=== PATIENT | female | born 1945 | race Caucasian/White ===

== ENCOUNTER → 2021-01-23 10:56 | Outpatient (CLI) | payer MEDICARE, SELFPAY ==
--- NOTE | 2021-01-23 11:01 | DI.MRI.S_ITS ---
PROCEDURE: MR LUMBAR SPINE WO CON INDICATIONS: Dementia, neck and back pain, TECHNIQUE: Noncontrast sagittal T1 spin echo and T2 fast echo, sagittal STIR, axial T1 and T2 fast spin echo through the lumbar spine. In cases with scoliosis, additional coronal T2 fast spin echo may be performed. COMPARISON: None. FINDINGS: There is been L4-5 and L5-S1 discectomy infusion with decompressive laminectomies at L4 and L5. Associated degenerative endplate changes noted. No paraspinal mass. Conus medullaris is appropriate in position. Incidental cholelithiasis noted. T12-L1: The disc height is normal. No evidence of disc bulge or protrusion. No central or foraminal stenosis present. L1-2: Severe disc space narrowing and large circumferential disc bulge combined with ligamentum flavum laxity to result in severe central stenosis, narrowing the AP diameter of the thecal sac to 5 mm. Moderate right and severe left foraminal stenosis present. L2-3: Severe disc space narrowing and hypertrophic facet joints are present. There is a 8 mm retrolisthesis of L2 over L3. These findings result in severe central stenosis narrowing the ML diameter of the thecal sac to 5 mm. There is severe bilateral foraminal stenosis L3-4: Interbody fusion and instrumentation. The central canal is widely decompressed. Mild left and no right foraminal stenosis present. L4-5: Interbody fusion and posterior instrumentation noted. Central canal is widely decompressed. Mild left and moderate right foraminal stenosis. L5-S1: There is disc space narrowing and degenerative endplate changes noted. No central stenosis. Hypertrophic facet joints results in severe left and moderate right foraminal stenosis. IMPRESSION: 1. Degenerative disc disease and grade 2 retrolisthesis at L2-3 results in severe central stenosis and severe bilateral foraminal stenosis 2. Additional severe central stenosis at L1-2. 3. L3-4 and L4-5 well-healed interbody fusion, decompressive laminectomy and posterior instrumentation Dictated by: Dwayne Hernandez M.D. on 01/23/2021 at 14:09 Approved by: Dwayne Hernandez M.D. on 01/23/2021 at 14:45
--- NOTE | 2021-01-23 11:01 | DI.MRI.S_ITS ---
PROCEDURE: MR CERVICAL SPINE WO CON INDICATIONS: Dementia, neck and back pain, TECHNIQUE: Noncontrast sagittal T1 spin echo and T2 fast spin echo, sagittal STIR, foraminal oblique sagittal T2 fast spin echo, and axial gradient echo or T2 fast spin echo through the cervical spine. COMPARISON: None. FINDINGS: Image quality: Excellent. Alignment and Curvature: Straightening of the usual cervical lordosis due to degenerative changes. Retrolisthesis of C4 on C5 measuring approximately 3 mm. Vertebral body heights maintained. Bone Marrow: Degenerative endplate signal changes including marrow edema are present at C3-C4, C4-C5, and C5-C6. No suspicious focal marrow signal abnormality. Spinal Cord: There is a T2 hyperintense lesion in the cord centrally and posteriorly at the C5 level (series 4, image 6 and series 8, image 19). This measures approximately 6 mm in craniocaudal dimension and 6 x 4 mm in maximum axial dimension. Otherwise normal cord signal. No syrinx. Regional Soft Tissues: Prevertebral and paraspinous soft tissues are not within normal limits. C2-C3: No spinal canal or neural foraminal stenosis. C3-C4: Posterior disc-osteophyte complex flattens the ventral cord and. Buckling of the ligamentum flavum further contributes to overall mild spinal canal stenosis. Facet and uncovertebral hypertrophy contribute to mild bilateral neural foraminal narrowing, right greater than left. C4-C5: Retrolisthesis of C4 on C5 combines with posterior disc osteophyte complex to flatten the ventral cord. Buckling of the ligamentum flavum further contribute to overall moderate spinal canal stenosis. Cord signal abnormality at this level presumably reflects an element of myelomalacia due to longstanding cord compression, although remote trauma or other process is not entirely excluded. Facet and uncovertebral hypertrophy contribute to severe left and moderate right neural foraminal stenosis. C5-C6: Posterior disc osteophyte complex without mass effect upon the cord. Facet and uncovertebral hypertrophy contribute to moderate right and mild left neural foraminal stenosis. C6-C7: Posterior disc osteophyte complex without mass effect upon the cord. Facet and uncovertebral hypertrophy contribute to moderate left greater than right neural foraminal stenosis. C7-T1: No spinal canal or neural foraminal stenosis. 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 Remote trauma or other process could cause a similar appearance, however, and other less likely causes will need clinical exclusion. Correlation with any prior cervical spine MRI studies would be helpful in this regard. Multilevel multifactorial degenerative changes producing varying degrees of neural foraminal stenosis up to severe on the left at C4-C5. Correlate for any corresponding radicular symptoms. Dictated by: Rigoberto Recio M.D. on 01/23/2021 at 11:56 Approved by: Rigoberto Recio M.D. on 01/23/2021 at 12:02
--- NOTE | 2021-01-23 11:02 | DI.CT.S_ITS ---
PROCEDURE: CT HEAD/BRAIN WO CON INDICATIONS: Dementia TECHNIQUE: Noncontrast 4.5 mm thick angled axial sections acquired from the foramen magnum to the vertex, with coronal and sagittal reformats. For radiation dose reduction, the following was used: automated exposure control, adjustment of mA and/or kV according to patient size. COMPARISON: None. FINDINGS: Cerebrum, Cerebellum and Brainstem: Moderate cerebral and cerebellar volume loss as well as severe multifocal and confluent hypoattenuation in the deep and subcortical white matter present. No acute hemorrhage or mass effect. Arthur-white distinction is preserved throughout the exam. Basal cisterns and foramen magnum are clear. Ventricles: Appropriate in size and position given the amount of cerebral atrophy. No evidence of hydrocephalus. Skull Base: The bony sella, pituitary gland and infundibulum are unremarkable. Clivus and craniovertebral relationships are appropriate. Visualized portions of external auditory canals and tympanic cavities are within normal limits. Calvarium and Scalp: No scalp soft tissue swelling. The underlying calvarium is intact without skull fracture or lytic lesion. Paranasal Sinuses: Unremarkable as visualized. No mucosal thickening or retention cyst noted. Mastoids: Unremarkable as visualized. No mastoid effusion present. Other: Atherosclerotic calcification in the cavernous portions of the distal internal carotid arteries are noted. IMPRESSION: Moderate atrophy with multifocal and confluent advanced white matter chronic ischemic change. No intracranial hemorrhage or mass effect. Dictated by: Dwayne Hernandez M.D. on 01/23/2021 at 14:45 Approved by: Dwayne Hernandez M.D. on 01/23/2021 at 15:13
== END ==
PROVIDERS: PCP Family Medicine; Referring Provider Acupuncturist; Visit Provider Acupuncturist
DX: G31.9 Degenerative disease of nervous system, unspecified (principal); F03.90 Unspecified dementia, unspecified severity, without behavioral disturbance, psychotic disturbance, mood disturbance, and anxiety; G95.9 Disease of spinal cord, unspecified; M54.2 Cervicalgia; M48.02 Spinal stenosis, cervical region; M47.812 Spondylosis without myelopathy or radiculopathy, cervical region; M54.9 Dorsalgia, unspecified; M51.36 Other intervertebral disc degeneration, lumbar region; M48.061 Spinal stenosis, lumbar region without neurogenic claudication; Z98.1 Arthrodesis status
CPT/HCPCS: 70450; 72141; 72148

== ENCOUNTER 2022-01-29 02:52 | Observation (INO) | payer MEDICARE, SELFPAY ==
[2022-01-29] VITALS (12 sets, daily range): BP systolic 116–162; BP diastolic 50–72; PULSE 53–84; RESP 11–19; TEMP 36.6–37.1; O2SAT 94–98; BMI 26.5
--- NOTE | 2022-01-29 03:01 | DI.RAD.S_ITS ---
PROCEDURE: XR CHEST 1V INDICATIONS: chest pain TECHNIQUE: One view of the chest was acquired. COMPARISON: None. FINDINGS: Surgical changes and devices: None. Lungs and pleura: Lungs are clear. No pleural effusions or pneumothorax. Mediastinum: Mediastinal contours appear normal. Heart size is normal. Bones and chest wall: No suspicious bony lesions. Overlying soft tissues appear unremarkable. IMPRESSION: No acute cardiopulmonary disease process. Dictated by: Marley Power MD, PhD on 01/29/2022 at 7:34 Approved by: Marley Power MD, PhD on 01/29/2022 at 7:35
--- NOTE | 2022-01-29 03:01 | DI.US.S_ITS ---
PROCEDURE: US ABDOMEN LIMITED INDICATIONS: RUQ PAIN TECHNIQUE: Real-time focused scanning was performed of the abdomen, with image documentation. COMPARISON: None. FINDINGS: Liver is normal in size and homogeneous in echotexture. Multiple small gallstones. Gallbladder wall measures 0.5 millimeters. No pericholecystic fluid. No sonographic Traore sign. Biliary tree is nondilated. Common bile duct measures 5.3 millimeters. Visualized pancreas is sonographically normal. IMPRESSION: Cholelithiasis without sonographic evidence of cholecystitis. If there is continued clinical concern for cholecystitis, a nuclear medicine HIDA scan should be considered for further evaluation. Dictated by: Marley Power MD, PhD on 01/29/2022 at 7:33 Approved by: Marley Pwoer MD, PhD on 01/29/2022 at 7:34
--- NOTE | 2022-01-29 03:05 | ED.ABDPAIN ---
HPI - Abdominal Pain General Chief Complaint: Abdominal Pain Stated Complaint: RUQ Abd apin x2 days Time Seen by Provider: 01/29/22 03:01 History of Present Illness HPI narrative: Patient is a 76-year-old female history of peptic ulcer, memory issues, presenting today with right upper quadrant pain. Son is with her who is the primary historian. Sounds like she was okay earlier today but pain woke her from her sleep. It is epigastric area sometimes goes into her chest. She feels nauseous, but has actually not had any vomiting. sHe is still complaining of pain. No bowel movement for 3 days. She denies any prior surgeries. Related Data Home Medications Medication Instructions Recorded Confirmed Centrum PO DAILY 01/29/22 PreserVision AREDS PO BID 01/29/22 Vitamin D3 10 mcg PO DAILY 01/29/22 01/29/22 amlodipine 2.5 mg PO DAILY 01/29/22 01/29/22 ezetimibe 10 mg PO QID 01/29/22 01/29/22 isosorbide mononitrate 30 mg PO DAILY 01/29/22 01/29/22 lisinopril 10 mg PO DAILY 01/29/22 01/29/22 sertraline 100 mg PO DAILY 01/29/22 01/29/22 simvastatin 40 mg PO DAILY 01/29/22 01/29/22 Allergies Allergy/AdvReac Type Severity Reaction Status Date / Time No Known Drug Allergies Allergy Verified 01/29/22 04:41 Review of Systems Review of Systems ROS Unobtainable: All systems reviewed & are unremarkable except as noted in HPI and below Patient History Social History Smoking Status: Never smoker Exam Initial Vital Signs Initial Vital Signs: Vital Signs Pulse Rate 54 L 01/29/22 02:57 Respiratory Rate 19 01/29/22 02:57 Pulse Oximetry 94 01/29/22 02:57 GENERAL: Alert pleasant 76-year-old female HEENT: Head atraumatic,EOMI, pupils reactive, face symmetric, [moist] mucous membranes CARDIOVASCULAR: Regular rate and rhythm without murmurs, rubs or gallops. RESPIRATORY: Breath sounds equal bilaterally, no wheezes rales or rhonchi. ABDOMEN: Soft, mild epigastric tenderness tender right quadrant, mild guarding no distention EXTREMITIES: Normal range of motion, no clubbing or edema. Neurovascularly intact NEUROLOGICAL: Alert and oriented x2.N SKIN: Warm, dry, no laceration, no petechiae, no rashes or lesions. Course Orders Ordered: ED Orders 01/29/22 02:55 EKG-12 Lead Stat 01/29/22 03:00 Complete Blood Count AUTO DIFF Stat Comprehensive Metabolic Panel Stat Lactate (Lactic Acid) Stat Lipase Stat Troponin & CK Cardiac Panel Stat 01/29/22 03:01 US abdomen limited Stat XR chest 1V Stat 01/29/22 04:09 CT abdomen pelvis w con Stat 01/29/22 05:12 COVID19 -Nasal RAPID/Pre-Proc Stat Sodium Chloride (Normal Saline 0.9%) 1,000 mls @ 150 mls/hr IV CONT SU Last Admin: 01/29/22 03:32 Dose: 150 mls/hr Documented By: STEVEN Discontinued Medications Ketorolac Tromethamine (Ketorolac 30 Mg/Ml Vial) 15 mg IV NOW ONE Stop: 01/29/22 03:02 Last Admin: 01/29/22 03:31 Dose: 15 mg Documented By: STEVEN Morphine Sulfate (Morphine 2 Mg/Ml Inj) 2 mg IV NOW ONE Stop: 01/29/22 04:38 Last Admin: 01/29/22 04:42 Dose: 2 mg Documented By: STEVEN Ondansetron HCl (Ondansetron 4 Mg/2 Ml Inj) 4 mg IV NOW ONE Stop: 01/29/22 03:02 Last Admin: 01/29/22 03:31 Dose: 4 mg Documented By: STEVEN Vital Signs Vital signs: Vital Signs - 8 hr 01/29/22 03:08 01/29/22 02:57 01/29/22 03:00 Temperature 97.9 F Pulse Rate 55 L 54 L Respiratory Rate 18 19 Blood Pressure 153/65 H 116/58 L Pulse Oximetry 95 94 Oxygen Delivery Method Room Air 01/29/22 03:00 01/29/22 03:30 01/29/22 03:30 Temperature Pulse Rate 53 L 55 L Respiratory Rate 11 L 13 Blood Pressure 119/60 Pulse Oximetry 96 98 Oxygen Delivery Method MDM - Abdominal Pain Lab Data Result diagrams: 01/29/22 03:00 01/29/22 03:00 Labs: Lab Results 01/29/22 01/29/22 01/29/22 Range/Units 03:00 03:00 03:00 WBC 7.7 (4.5-11.0) X10^3/uL RBC 3.74 L (4.0-5.2) X10^6/uL Hgb 11.9 L (12.0-16.0) g/dL Hct 35.9 L (36-46) % MCV 95.8 (80-100) fL MCH 31.8 (26-34) PG MCHC 33.2 (30-36) % RDW 13.7 (11.6-14.8) % Plt Count 270 (150-400) X10^3/uL Neut % (Auto) 62.1 (50-75) % Lymph % (Auto) 24.1 L (25-40) % [place] % (Auto) 7.6 (3-14) % Eos % (Auto) 5.2 H (2-4) % Baso % (Auto) 1.0 (0-2) % Neut # (Auto) 4800 (6233-6260) /uL Lymph # (Auto) 1900 (0748-7187) /uL [place] # (Auto) 600 (0-900) /uL Eos # (Auto) 400 (0-450) /uL Baso # (Auto) 100 (0-100) /uL Sodium 140 (137-145) mmol/L Potassium 4.2 (3.4-5.1) mmol/L Chloride 102 (98-107) mmol/L Carbon Dioxide 29 (22-32) mmol/L BUN 19 H (7-17) mg/dL Creatinine 0.86 (0.52-1.04) mg/dL Estimated GFR > 60 (>60) mL/min BUN/Creatinine Ratio 22.1 H (6-22) Glucose 111 H (80-110) mg/dL Lactate 2.1 (0.7-2.1) mmol/L Calcium 9.7 (8.4-10.2) mg/dL Total Bilirubin 0.5 (0.2-1.3) mg/dL AST 36 (14-36) IU/L ALT 26 (<35) IU/L Alkaline Phosphatase 83 (38-126) U/L Total Creatine Kinase 176 H (30-135) U/L CK-MB (CK-2) 2.75 H (<2.37) ng/mL CK-MB (CK-2) Rel Index 1.6 (1.5-5.0) % Troponin I < 0.012 (0.01-0.034) ng/mL Total Protein 7.5 (6.3-8.2) g/dL Albumin 4.5 (3.5-5.0) g/dL Globulin 3.0 (1.7-4.1) g/dL Albumin/Globulin Ratio 1.5 (1.0-2.8) Lipase 108 (23-300) U/L SARS-CoV-2 (PCR) (Negative) 01/29/22 Range/Units 05:12 WBC (4.5-11.0) X10^3/uL RBC (4.0-5.2) X10^6/uL Hgb (12.0-16.0) g/dL Hct (36-46) % MCV (80-100) fL MCH (26-34) PG MCHC (30-36) % RDW (11.6-14.8) % Plt Count (150-400) X10^3/uL Neut % (Auto) (50-75) % Lymph % (Auto) (25-40) % [place] % (Auto) (3-14) % Eos % (Auto) (2-4) % Baso % (Auto) (0-2) % Neut # (Auto) (7366-5621) /uL Lymph # (Auto) (2210-0560) /uL [place] # (Auto) (0-900) /uL Eos # (Auto) (0-450) /uL Baso # (Auto) (0-100) /uL Sodium (137-145) mmol/L Potassium (3.4-5.1) mmol/L Chloride (98-107) mmol/L Carbon Dioxide (22-32) mmol/L BUN (7-17) mg/dL Creatinine (0.52-1.04) mg/dL Estimated GFR (>60) mL/min BUN/Creatinine Ratio (6-22) Glucose (80-110) mg/dL Lactate (0.7-2.1) mmol/L Calcium (8.4-10.2) mg/dL Total Bilirubin (0.2-1.3) mg/dL AST (14-36) IU/L ALT (<35) IU/L Alkaline Phosphatase (38-126) U/L Total Creatine Kinase (30-135) U/L CK-MB (CK-2) (<2.37) ng/mL CK-MB (CK-2) Rel Index (1.5-5.0) % Troponin I (0.01-0.034) ng/mL Total Protein (6.3-8.2) g/dL Albumin (3.5-5.0) g/dL Globulin (1.7-4.1) g/dL Albumin/Globulin Ratio (1.0-2.8) Lipase (23-300) U/L SARS-CoV-2 (PCR) Negative (Negative) Imaging Data US - abdomen: Radiologist's Impression: Cholelithiasis no sonographic findings of acute cholecystitis or obstructive uropathy Chest x-ray: Radiologist's Impression: No acute cardiopulmonary abnormality is identified CT scan - abdomen/pelvis: Radiologist's Impression: Findings compatible with small-bowel obstruction with probable transition point within the left mid abdomen. No pneumoperitoneum or pneumonitis. No evidence of colitis diverticulitis obstructive uropathy or acute appendicitis. ECG Data Interpretation: Normal sinus rhythm rate 55 CO interval 148 QRS [address] changes, T-wave inversion noted in lead 3 only no priors to compare MDM Narrative Medical decision making narrative: The patient is uncomfortable no significant abdominal distension. Blood work is overall reassuring. Ultrasound shows cholelithiasis but no elevation of bilirubin unlikely to be common bile duct stone, however CT confirms bowel obstruction. Patient has no history of surgery. She is not actively vomiting. 0505 Dr. Hernandez for reassessment and patient's symptoms test results. This time no need for NG tube. Admit to medicine. 0515 Tiffany Hernandez accepts patient. Patient's pain is better after morphine and Zofran. No sign of mesenteric ischemia, or sepsis. Discharge Plan Departure Patient Disposition: Admitted as Observation Clinical Impression: Small bowel obstruction Admit Date/Time: 01/29/22 05:14 Admit Provider: Fabby Hernandez
[2022-01-29 03:15] LABS: Add Manual Diff / Slide Review NO; Basophils Absolute Auto 100 /uL (0-100); Eosinophils Absolute Auto 400 /uL (0-450); Eosinophils Percent Auto 5.2 % (2-4); Hematocrit 35.9 % (36-46); Hemoglobin 11.9 g/dL (12.0-16.0); Lymphocytes Absolute Auto 1900 /uL (1100-4500); Lymphocytes Percent Auto 24.1 % (25-40); Mean Corpuscular HGB Conc 33.2 % (30-36); Mean Corpuscular Hemoglobin 31.8 PG (26-34); Mean Corpuscular Volume 95.8 fL (80-100); Monocytes Absolute Auto 600 /uL (0-900); Monocytes Percent Auto 7.6 % (3-14); Neutrophils Absolute Auto 4800 /uL (1500-7000); Neutrophils Percent Auto 62.1 % (50-75); Platelet Count 270 X10^3/uL (150-400); Red Blood Cell Count 3.74 X10^6/uL (4.0-5.2); Red Cell Distribution Width 13.7 % (11.6-14.8); White Blood Cell Count 7.7 X10^3/uL (4.5-11.0)
[2022-01-29 03:23] LABS: Alanine Aminotransferase 26 IU/L (<35); Albumin 4.5 g/dL (3.5-5.0); Albumin Globulin Ratio 1.5 (1.0-2.8); Alkaline Phosphatase 83 U/L (38-126); Aspartate Aminotransferase 36 IU/L (14-36); BUN Creatinine Ratio 22.1 (6-22); Bilirubin Total 0.5 mg/dL (0.2-1.3); Blood Urea Nitrogen 19 mg/dL (7-17); Calcium 9.7 mg/dL (8.4-10.2); Carbon Dioxide 29 mmol/L (22-32); Chloride 102 mmol/L (98-107); Creatine Kinase 176 U/L (30-135); Estimated Glomerular Filt Rate > 60 mL/min (>60); Glucose 111 mg/dL (80-110); HEMOLYSIS < 15 (0-50); Lipase 108 U/L (23-300); Potassium 4.2 mmol/L (3.4-5.1); Sodium 140 mmol/L (137-145); Total Protein 7.5 g/dL (6.3-8.2)
[2022-01-29] MEDS: KETOROLAC 30 MG/ML VIAL 15 MG IV (03:31)
[2022-01-29] MEDS: ONDANSETRON 4 MG/2 ML INJ IV ×2 (03:31→08:08)
[2022-01-29] MEDS: SODIUM CHLORIDE 0.9% 1,000 ML 150 ML IV (03:32)
[2022-01-29 03:35] LABS: Troponin I < 0.012 ng/mL (0.01-0.034)
[2022-01-29 03:39] LABS: CKMB % Relative Index 1.6 % (1.5-5.0); Creatine Kinase MB 2.75 ng/mL (<2.37)
--- NOTE | 2022-01-29 04:09 | DI.CT.S_ITS ---
PROCEDURE: CT ABDOMEN PELVIS W CON INDICATIONS: ab pain TECHNIQUE: After the administration of oral and IV contrast, axial sections were acquired from the lung bases to the pubic symphysis. Coronal and sagittal reformats were performed. For radiation dose reduction, the following was used: automated exposure control, adjustment of mA and/or kV according to patient size. COMPARISON: None. FINDINGS: Image quality: Portions of the abdomen and pelvis are suboptimally evaluated secondary to metallic streak artifact from spinal fusion hardware Lung bases: Unremarkable. Heart: No significant findings. ABDOMEN: Liver: Liver is enlarged with steatosis. Gallbladder: Stones are present within the dependent lumen without wall thickening. Biliary ducts: Unremarkable. Pancreas: Unremarkable. Spleen: Unremarkable. Adrenal Glands: Unremarkable. Kidneys and Ureters: Low-attenuation renal foci are present bilaterally most suggestive of simple cysts. Stomach and Bowel: Mildly dilated fluid-filled loops of small bowel are noted. Possible transition point is noted within the left hemiabdomen. Greatest dimension measures 3.0 cm. Colonic diverticula are present. Peritoneum: No abnormal intraperitoneal fluid. No free air. Ventral Wall: Bilateral fat containing femoral hernias are present, right greater than left. Abdominal Nodes: No retroperitoneal or mesenteric adenopathy by size criteria. Vessels: Aorta and inferior vena cava are normal in size. PELVIS: Pelvic Organs: Unremarkable. Bladder: Unremarkable. Pelvic Nodes: No enlarged lymph nodes. Miscellaneous: No inguinal hernias are seen. Bones: Unremarkable. IMPRESSION: Dilated fluid-filled loops of small bowel most consistent partial small bowel obstruction. Cholelithiasis without imaging findings of cholecystitis. Dictated by: Venus Novoa M.D. on 01/29/2022 at 9:43 Approved by: Venus Novoa M.D. on 01/29/2022 at 9:45
[2022-01-29] MEDS: MORPHINE 2 MG/ML INJ IV (04:42)
[2022-01-29 05:07] LABS: Lactate (Lactic Acid) 2.1 mmol/L (0.7-2.1)
[2022-01-29 05:39] LABS: COVID19 -Nasal RAPID Negative (Negative)
--- NOTE | 2022-01-29 05:57 | PM.HP.1 ---
History of Present Illness History of Present Illness Chief complaint: RUQ Abd apin x2 days Narrative: Anca Toussaint is a 76 y.o. female resident of [facility], and with no reported abdominal surgical history, but with hypertension and hyperlipidemia presented to the ED with a 3-day history of no bowel movements and mid-epigastric pain, apparently waking her up from the pain. She does endorse nausea with no vomiting. She denies chest pain or shortness of breath, but is difficult to elicit due to her significant dementia Patient History Medical History (Updated 01/29/22 @ 06:50 by BRENDA Cuadra) Dementia Essential hypertension Hyperlipidemia Surgical History (Updated 01/29/22 @ 06:50 by BRENDA Cuadra) History of cervical spinal surgery History of lumbosacral spine surgery Family & Social History Family history unavailable: Yes (Patient cannot recall) Safety & Behavioral: Feels Safe in Current Yes Environment Tobacco & Substance use: Smoking Status Never smoker Substance Use Type does not use Meds Home Medications and Allergies Home Medications Medication Instructions Recorded Confirmed Type Centrum PO DAILY 01/29/22 History PreserVision AREDS PO BID 01/29/22 History Vitamin D3 10 mcg PO DAILY 01/29/22 01/29/22 History amlodipine 2.5 mg PO DAILY 01/29/22 01/29/22 History ezetimibe 10 mg PO BEDTIME 01/29/22 01/29/22 History isosorbide mononitrate 30 mg PO DAILY 01/29/22 01/29/22 History lisinopril 10 mg PO DAILY 01/29/22 01/29/22 History sertraline 100 mg PO DAILY 01/29/22 01/29/22 History simvastatin 40 mg PO DAILY 01/29/22 01/29/22 History Allergies Allergy/AdvReac Type Severity Reaction Status Date / Time No Known Drug Allergies Allergy Verified 01/29/22 04:41 Review of Systems Review of Systems ROS: Yes unobtainable due to mental status Exam Vital Signs (past 8 hours): - 01/29/22 03:08 01/29/22 02:57 01/29/22 03:00 Temperature 97.9 F Pulse Rate 55 L 54 L Respiratory Rate 18 19 Blood Pressure 153/65 H 116/58 L Pulse Oximetry 95 94 Oxygen Delivery Method Room Air 01/29/22 03:00 01/29/22 03:30 01/29/22 03:30 Temperature Pulse Rate 53 L 55 L Respiratory Rate 11 L 13 Blood Pressure 119/60 Pulse Oximetry 96 98 Oxygen Delivery Method Oxygen Delivery Method Room Air Narrative Exam Narrative: Gen: Alert, oriented, well-developed [] y.o. [] fe[]male, NAD HEENT: normocephalic, atraumatic, conjunctiva clear, sclera non-icteric, oral mucosa pink and moist Neck: supple, full ROM, no JVD, trachea is midline Resp: Lungs CTA, non-labored breathing CV: RRR, no murmur or rubs Abd: soft, non-tender, normoactive BTs Skin: no lesions or rashes, dry and intact Neuro: Alert and oriented X 4 w/no focal deficits. Speech clear and coherent. Extremities: moves all 4 extremities, is ambulatory, negative Apolinar?s sign Psyche: normal mood and affect. Objective Labs Result Diagrams: 01/29/22 03:00 01/29/22 03:00 Labs: Laboratory Results - last 24 hr 01/29/22 01/29/22 01/29/22 03:00 03:00 03:00 WBC 7.7 RBC 3.74 L Hgb 11.9 L Hct 35.9 L MCV 95.8 MCH 31.8 MCHC 33.2 RDW 13.7 Plt Count 270 Neut % (Auto) 62.1 Lymph % (Auto) 24.1 L [place] % (Auto) 7.6 Eos % (Auto) 5.2 H Baso % (Auto) 1.0 Neut # (Auto) 4800 Lymph # (Auto) 1900 [place] # (Auto) 600 Eos # (Auto) 400 Baso # (Auto) 100 Sodium 140 Potassium 4.2 Chloride 102 Carbon Dioxide 29 BUN 19 H Creatinine 0.86 Estimated GFR > 60 BUN/Creatinine Ratio 22.1 H Glucose 111 H Lactate 2.1 Calcium 9.7 Total Bilirubin 0.5 AST 36 ALT 26 Alkaline Phosphatase 83 Total Creatine Kinase 176 H CK-MB (CK-2) 2.75 H CK-MB (CK-2) Rel Index 1.6 Troponin I < 0.012 Total Protein 7.5 Albumin 4.5 Globulin 3.0 Albumin/Globulin Ratio 1.5 Lipase 108 SARS-CoV-2 (PCR) 01/29/22 05:12 WBC RBC Hgb Hct MCV MCH MCHC RDW Plt Count Neut % (Auto) Lymph % (Auto) [place] % (Auto) Eos % (Auto) Baso % (Auto) Neut # (Auto) Lymph # (Auto) [place] # (Auto) Eos # (Auto) Baso # (Auto) Sodium Potassium Chloride Carbon Dioxide BUN Creatinine Estimated GFR BUN/Creatinine Ratio Glucose Lactate Calcium Total Bilirubin AST ALT Alkaline Phosphatase Total Creatine Kinase CK-MB (CK-2) CK-MB (CK-2) Rel Index Troponin I Total Protein Albumin Globulin Albumin/Globulin Ratio Lipase SARS-CoV-2 (PCR) Negative Assessment & Plan Assessment & Plan narrative: Anca Toussaint is placed into observation for a suspected small bowel obstruction. Suspected SBO, acute, present on admission NPO Dr. Hernandez to consult IV zofran for n/v IV morphine and dilaudid for severe and breakthrough pain Essential hypertension Continue home doses of amlodipine and lisinopril Suspected CAD Continue home dose of isosorbide mononitrate Dyslipidemia, chronic she normally takes simvastatin, have substituted with atorvastatin Depression, chronic continue home dose of sertriline VTE Prophylaxis: Wells risk score 0 [X]Enoxaparin 40 mg subQ once daily X Bilateral SCDs Patient is placed into observation as her stay is not expected to exceed 2 midnights. FEN: IV fluids: NS at 100 ml, diet: NPO except meds, labs: CBC, C/BMP, liver enzymes, Mag, PT/INR Consultants: None care and involvement in the patient?s care is appreciated. Dispo: eventual d/c back to assisted living facility Code status: Full code as discussed with the patient who identifies Avelino Chu, her son as her surrogate and POA. [X] I have utilized all available immediate resources to obtain, update, or review of the patient's current medications COVID-19 COVID-19 status: Negative Result date/Date tested (Pos, Neg/Pending): 01/29/22 Time Spent With Patient Critical Care time: I spent a total of [] minutes of critical care time on this patient's care today; this time is exclusive of procedural time. Scores Wells' Criteria for PE Clinical signs and symptoms of DVT: No PE is #1 Dx or equally likely: No Heart rate > 100: No Immobilization at least 3 days or surg in previous 4 weeks: No History of PE or DVT: No Hemoptysis: No Malignancy w/Treatment within 6 months or palliative: No Wells' PE Score total: 0 Quality VTE Deep Vein Thrombosis/Pulmonary Embolism Present on Admission: No MIPS - Admit I confirm the patient?s Advance Care Plan is present, Code status is documented, Surrogate decision maker is in patient?s record [If Yes, STOP here]: Yes MIPS - DC The patient has current or prior documentation of left ventricular ejection fraction (LVEF) less than 40%, or moderate or severely depressed left ventricular systolic function.: No
[2022-01-29] MEDS: SODIUM CHLORIDE 0.9% 1,000 ML 100 ML IV ×2 (06:51→17:47)
[2022-01-29 06:58] LABS: Reflexed Lactate in 2 Hours Y
[2022-01-29 08:01] LABS: Lactate 2HR (Lactic Acid Rflx) 1.2 mmol/L (0.7-2.1)
[2022-01-29] MEDS: ISOSORBIDE MONONITRATE ER 30 MG TABLET PO (10:14)
[2022-01-29] MEDS: AMLODIPINE 5 MG TABLET 2.5 MG PO (10:14)
[2022-01-29] MEDS: lisinopriL 10 MG TABLET PO (10:14)
--- NOTE | 2022-01-29 16:03 | CM.DANOTE ---
Patient is a 76 yo female who was admitted on 01/29/22 for Abd Pain. Pt has MCR and [employer] for insurance and her PCP is Shar Burns. EMR was reviewed. Per MD, pt with dementia at baseline and admitted for possible SBO and is currently NPO. Surgeon Consult pending but likely conservatively treat if pt continues to progress. Per RN, pt has been ambulating steady in room with walker and had small bm and may be stable for d/c by tomorrow if continues with bowel tones. SW met bedside with pt and explained role and she confirms she lives at [facility] and is independent and her DPOA is her local son Avelino. Pt states she is hopeful for d/c back to [facility] tomorrow if stable and does not anticipate any needs and states her son Avelino who was bedside earlier today will be the one to transport her home. SW called [facility] and confirmed pt lives on Independent side and therefore no clinicals needed to be faxed and they do not need to assess pt for return. Plan: SW to follow closely tomorrow to confirm SBO has resolved and pt stable for d/c back to [facility] via son POV and any further identified needs. YOLI Krishnan Discharge Planning/Care Management Advanced directive, confirm from FAMILY Start: 01/29/22 06:28 Freq: Q24H Status: Active Protocol: Document 01/29/22 06:30 MW (Rec: 01/29/22 06:31 MW [id number]) Advance Directive, confirm on record Time 06:31 Person contacted pt Copy received No CM Discharge Assessment Start: 01/29/22 16:00 Freq: Status: Active Protocol: Document 01/29/22 16:00 BF (Rec: 01/29/22 16:02 BF [id number]) Discharge Planning Assessment Assigned University Counselor YOLI Worthington DPOA/Assigned Designee Name son Avelino Chu Contact Information [phone] Advance Directives? Yes Advance Directives on File No History Provided By Patient,Medical Record Has Patient been admitted in last 30 No days? Prior Living Arrangements Assisted Living Comment [facility] Independent Type of transporation used prior to Relies on Others admit Facility Name Admitted From: [facility]isted Living Willing to Return to Facility? Yes Independent with ADL's Yes Is patient alert and oriented? Yes: mostly Needs Assistance With Home Chores / Shopping Caregiver for Another No DME Already Rented / Owned FWW / Walker Barriers to Discharge No Discharge Plan Assisted Living Facility Transportation Arrangement son Avelino will transport at d/c Referrals Initiated None needed Whiteboard Updated in Patient Room with Yes name and ext. # of University Counselor Review Status In Process Please Provide Date Initial DC 01/29/22 Assessment Was Performed Next Review Type Continued Stay Review
[2022-01-29] MEDS: BISACODYL 10 MG SUPP PR (17:47)
[2022-01-29] MEDS: ATORVASTATIN 20 MG TABLET 10 MG PO (21:30)
[2022-01-29] MEDS: SERTRALINE 50 MG TABLET 100 MG PO (21:31)
[2022-01-29] MEDS: EZETIMIBE 10 MG TABLET PO (21:31)
--- NOTE | 2022-01-29 22:23 | PC.NURSE ---
Patient alert and able to state name and mo/day of birthday but not year, had age incorrect and able to respond yes when asked if she is in the hospital. Has delayed responses and difficulty coming up with correct words. Breath sounds CTA with RA sat of 95%. HRR but has elevated BP of 144/54. Denies nausea. BT present and abdomen is soft. Denies abdominal pain but was slightly tender to palpation in mid abdomen. Had suppository on previous shift with a small BM after. Denies dysuria with urination. Able to turn self in bed and gets up to bathroom with walker and 1 assist. Wearing bilateral calf SCD's. Fall risk score is high and bed alarm is activated.
--- NOTE | 2022-01-30 | DI.RAD.S_ITS ---
PROCEDURE: XR GASTROGRAFIN CHALLENGE COMPARISON: [facility], CR, XR KUB, 01/30/2022, 7:27. [facility], CT, CT ABDOMEN PELVIS W CON, 01/29/2022, 4:23. INDICATIONS: SBO FINDINGS: Oral contrast extends into the distal colon. There is scattered small bowel and colonic gas. Paucity of bowel gas in the stomach. L3-L5 pedicle screw fixation. There is lower lumbar spine degenerative change. The lung bases are clear. IMPRESSION: Oral contrast extends into the distal colon. This suggests improved/improving bowel obstruction. Dictated by: Bradley Farley M.D. on 01/30/2022 at 16:30 Approved by: Bradley Farley M.D. on 01/30/2022 at 16:34
[2022-01-30] MEDS: SODIUM CHLORIDE 0.9% 1,000 ML 100 ML IV (03:02)
[2022-01-30 03:15] VITALS: BP 146/52; PULSE 63; RESP 18; TEMP 36.8; O2SAT 98
[2022-01-30 05:56] LABS: Add Manual Diff / Slide Review NO; Basophils Absolute Auto 0 /uL (0-100); Basophils Percent Auto 0.8 % (0-2); Eosinophils Absolute Auto 200 /uL (0-450); Eosinophils Percent Auto 3.2 % (2-4); Hematocrit 31.4 % (36-46); Hemoglobin 10.7 g/dL (12.0-16.0); Lymphocytes Absolute Auto 1400 /uL (1100-4500); Mean Corpuscular HGB Conc 34.1 % (30-36); Mean Corpuscular Hemoglobin 32.3 PG (26-34); Mean Corpuscular Volume 94.8 fL (80-100); Monocytes Absolute Auto 500 /uL (0-900); Monocytes Percent Auto 7.7 % (3-14); Neutrophils Absolute Auto 4000 /uL (1500-7000); Neutrophils Percent Auto 65.3 % (50-75); Platelet Count 195 X10^3/uL (150-400); Red Blood Cell Count 3.31 X10^6/uL (4.0-5.2); Red Cell Distribution Width 13.4 % (11.6-14.8); White Blood Cell Count 6.1 X10^3/uL (4.5-11.0)
[2022-01-30 05:59] LABS: BUN Creatinine Ratio 21.3 (6-22); Blood Urea Nitrogen 16 mg/dL (7-17); Calcium 8.6 mg/dL (8.4-10.2); Carbon Dioxide 24 mmol/L (22-32); Chloride 108 mmol/L (98-107); Estimated Glomerular Filt Rate > 60 mL/min (>60); Glucose 105 mg/dL (80-110); HEMOLYSIS < 15 (0-50); Magnesium 1.7 mg/dL (1.6-2.3); Sodium 140 mmol/L (137-145)
[2022-01-30 06:03] LABS: Alanine Aminotransferase 20 IU/L (<35); Albumin 3.6 g/dL (3.5-5.0); Albumin Globulin Ratio 1.6 (1.0-2.8); Alkaline Phosphatase 62 U/L (38-126); Aspartate Aminotransferase 31 IU/L (14-36); Bilirubin Total 0.5 mg/dL (0.2-1.3); Bilirubin Unconjugated 0.4 mg/dL (0.0-1.1); Globulin 2.2 g/dL (1.7-4.1); HEMOLYSIS < 15 (0-50); Total Protein 5.8 g/dL (6.3-8.2)
--- NOTE | 2022-01-30 07:17 | DI.RAD.S_ITS ---
PROCEDURE: XR KUB INDICATIONS: SBO TECHNIQUE: One view of the abdomen acquired. COMPARISON: [facility], CT, CT ABDOMEN PELVIS W CON, 01/29/2022, 4:23. FINDINGS: Surgical changes and devices: None. Bowel: Bowel gas pattern is nonspecific. Moderate amount of stool in colon. Soft tissues: No suspicious abdominal calcifications. Visualized solid organ contours appear normal in size. Bones: No suspicious bony lesions. Degenerative and surgical changes in the lower lumbar spine. IMPRESSION: Nonspecific bowel gas pattern with moderate amount of stool in colon. If clinical symptoms persist or clinical suspicion for pathology is high, repeat CT is suggested for further evaluation. Dictated by: Chrissy Villatoro M.D. on 01/30/2022 at 8:53 Approved by: Chrissy Villatoro M.D. on 01/30/2022 at 8:56
[2022-01-30 08:11] VITALS: BP 146/51; PULSE 62; RESP 16; TEMP 36.5; O2SAT 97
--- NOTE | 2022-01-30 09:16 | PC.NURSE ---
Patient pleasantly confused with history of dementia, speaking on the phone with her today who reports their son Avelino will be coming in shortly. Patient denies pain, n/v or other complaint at this time, other than hungry and wanting to go home. Bed alarm on, call light within reach. Continue with plan of care.
--- NOTE | 2022-01-30 09:37 | PM.CN ---
History of Present Illness Consult details Date Patient Seen: 01/30/22 Time Patient Seen: 09:37 Chief complaint: RUQ Abd apin x2 days Reason for consult: SBO Requesting provider: Beth Galindo Narrative: Admitted for abdominal pain and SBO seen on CT scan with transition point. Does have constipation on CT as well. Had a small BM today. Meds Home Medications and Allergies Home Medications Medication Instructions Recorded Confirmed Type Centrum PO DAILY 01/29/22 History PreserVision AREDS PO BID 01/29/22 History Vitamin D3 10 mcg PO DAILY 01/29/22 01/29/22 History amlodipine 2.5 mg PO DAILY 01/29/22 01/29/22 History ezetimibe 10 mg PO BEDTIME 01/29/22 01/29/22 History isosorbide mononitrate 30 mg PO DAILY 01/29/22 01/29/22 History lisinopril 10 mg PO DAILY 01/29/22 01/29/22 History sertraline 100 mg PO DAILY 01/29/22 01/29/22 History simvastatin 40 mg PO DAILY 01/29/22 01/29/22 History Allergies Allergy/AdvReac Type Severity Reaction Status Date / Time No Known Drug Allergies Allergy Verified 01/29/22 04:41 Review of Systems Review of Systems ROS: Yes unobtainable due to mental status Exam Vital Signs (past 8 hours): - 01/30/22 03:15 01/30/22 03:15 01/30/22 08:11 Temperature 98.2 F 97.7 F Pulse Rate 63 62 Respiratory Rate 18 16 Blood Pressure 146/52 H 146/51 H Pulse Oximetry 98 98 97 Oxygen Delivery Method Room Air Oxygen Flow Rate 0 0 0 Oxygen Delivery Method Room Air Oxygen Flow Rate 0 Const General: cooperative, comfortable and frail appearing Nutritional Appearance: average body habitus Other: dementia [facility] Head: normocephalic and atraumatic Eyes General: appearance normal, both eyes and all related structures Neck Neck: trachea midline and supple Chest Chest: normal inspection of the chest Resp Effort & Inspection: normal respiratory effort and able to speak in complete sentences Cardio Rate: regular rate Rhythm: regular rhythm GI Palpation: soft Other: mild tenderness to lower abdomen Skin General: atrophy, dry skin and ecchymosis Neuro General: patient alert, patient awake and patient oriented x3 Cognition: abnormal cognition Speech: speech normal Gait: gait assisted Extrem General: normal to inspection Psych Appearance: grossly normal Affect: normal affect Judgment: limited Objective Labs Result Diagrams: 01/30/22 05:05 01/30/22 05:05 Labs: Laboratory Results - last 24 hr 01/30/22 01/30/22 01/30/22 05:05 05:05 05:05 WBC 6.1 RBC 3.31 L Hgb 10.7 L Hct 31.4 L MCV 94.8 MCH 32.3 MCHC 34.1 RDW 13.4 Plt Count 195 Neut % (Auto) 65.3 Lymph % (Auto) 23.0 L [place] % (Auto) 7.7 Eos % (Auto) 3.2 Baso % (Auto) 0.8 Neut # (Auto) 4000 Lymph # (Auto) 1400 [place] # (Auto) 500 Eos # (Auto) 200 Baso # (Auto) 0 Sodium 140 Potassium 4.0 Chloride 108 H Carbon Dioxide 24 BUN 16 Creatinine 0.75 Estimated GFR > 60 BUN/Creatinine Ratio 21.3 Glucose 105 Calcium 8.6 Magnesium 1.7 Total Bilirubin 0.5 Conjugated Bilirubin 0.0 Unconjugated Bilirubin 0.4 AST 31 ALT 20 Alkaline Phosphatase 62 Total Protein 5.8 L Albumin 3.6 Globulin 2.2 Albumin/Globulin Ratio 1.6 [facility] Medical History (Updated 01/29/22 @ 06:50 by BRENDA Cuadra) Dementia Essential hypertension Hyperlipidemia Surgical History (Updated 01/29/22 @ 06:50 by BRENDA Cuadra) History of cervical spinal surgery History of lumbosacral spine surgery Social History household members: spouse Tobacco & Substance Use Smoking Status: Never smoker alcohol intake: never Assessment & Plan Assessment & Plan narrative: Partial SBO and constipation Gastrograffin challenge with be both diagnostic and therapeutic Time Spent With Patient Time with patient: less than 30 minutes Critical Care time: I spent a total of [] minutes of critical care time on this patient's care today; this time is exclusive of procedural time.
[2022-01-30] MEDS: ISOSORBIDE MONONITRATE ER 30 MG TABLET PO (10:01)
[2022-01-30] MEDS: lisinopriL 10 MG TABLET PO (10:01)
[2022-01-30] MEDS: SODIUM CHLORIDE 0.9% FLUSH 10 ML IV (10:02)
[2022-01-30] MEDS: MAGNESIUM CHLORIDE 64 MG TABLET 128 MG PO (10:02)
[2022-01-30] MEDS: AMLODIPINE 5 MG TABLET 2.5 MG PO (10:02)
[2022-01-30 10:12] VITALS: PULSE 65; RESP 16; O2SAT 95
[2022-01-30 11:36] VITALS: BP 111/72; PULSE 76; RESP 18; TEMP 36.4
--- NOTE | 2022-01-30 17:57 | P.DS_ITS ---
History of Present Illness History of Present Illness Chief complaint: RUQ Abd apin x2 days Narrative: Anca Toussaint is a 76 y.o. female resident of [facility], and with no reported abdominal surgical history, but with hypertension and hyperlipidemia presented to the ED with a 3-day history of no bowel movements and mid- epigastric pain, apparently waking her up from the pain. She does endorse n ausea with no vomiting. She denies chest pain or shortness of breath, but is difficult to elicit due to her significant dementia Discharge Providers Provider Date of admission: 01/29/22 05:14 Discharge Date: 01/30/22 Primary care physician: Shar Burns MD Consults: 01/29/22 05:39 Consult to Physician Routine Comment: Consulting Provider: Kim Hernandez Reason for consultation: SBO Has provider been notified: Yes 01/29/22 06:27 Consult to Dietitian, Adult Routine Comment: Reason For Exam: obstruction Discharge provider: Shmuel Umanzor Summary Hospital Course Discharge Diagnosis: SBO/constipation Hospital Course: SBO/constipation - resolved after gastrograffin study , surgery evaluated , had a large stool Essential hypertension- continued home meds CHF - Continued home dose of isosorbide mononitrate Dyslipidemia, chronic -continued statin Depression, chronic- continued home dose of sertriline Exam Vital Signs (past 8 hours): - 01/30/22 10:12 01/30/22 11:36 Temperature 97.5 F L Pulse Rate 65 76 Respiratory Rate 16 18 Blood Pressure 111/72 Pulse Oximetry 95 Oxygen Delivery Method Room Air Oxygen Delivery Method Room Air Oxygen Flow Rate 0 Const General: cooperative, comfortable and frail appearing Nutritional Appearance: average body habitus Other: dementia HENMT Head: normocephalic and atraumatic Eyes General: appearance normal, both eyes and all related structures Neck Neck: trachea midline and supple Chest Chest: normal inspection of the chest Resp Effort & Inspection: normal respiratory effort and able to speak in complete sentences Cardio Rate: regular rate Rhythm: regular rhythm GI Palpation: soft Other: mild tenderness to lower abdomen Skin General: atrophy, dry skin and ecchymosis Neuro General: patient alert, patient awake and patient oriented x3 Cognition: abnormal cognition Speech: speech normal Gait: gait assisted Extrem General: normal to inspection Psych Appearance: grossly normal Affect: normal affect Judgment: limited Objective Labs Result Diagrams: 01/30/22 05:05 01/30/22 05:05 Labs: Laboratory Results - last 24 hr 01/30/22 01/30/22 01/30/22 05:05 05:05 05:05 WBC 6.1 RBC 3.31 L Hgb 10.7 L Hct 31.4 L MCV 94.8 MCH 32.3 MCHC 34.1 RDW 13.4 Plt Count 195 Neut % (Auto) 65.3 Lymph % (Auto) 23.0 L [place] % (Auto) 7.7 Eos % (Auto) 3.2 Baso % (Auto) 0.8 Neut # (Auto) 4000 Lymph # (Auto) 1400 [place] # (Auto) 500 Eos # (Auto) 200 Baso # (Auto) 0 Sodium 140 Potassium 4.0 Chloride 108 H Carbon Dioxide 24 BUN 16 Creatinine 0.75 Estimated GFR > 60 BUN/Creatinine Ratio 21.3 Glucose 105 Calcium 8.6 Magnesium 1.7 Total Bilirubin 0.5 Conjugated Bilirubin 0.0 Unconjugated Bilirubin 0.4 AST 31 ALT 20 Alkaline Phosphatase 62 Total Protein 5.8 L Albumin 3.6 Globulin 2.2 Albumin/Globulin Ratio 1.6 [facility] Medical History (Updated 01/29/22 @ 06:50 by BRENDA Cuadra) Dementia Essential hypertension Hyperlipidemia Surgical History (Updated 01/29/22 @ 06:50 by BRENDA Cuadra) History of cervical spinal surgery History of lumbosacral spine surgery Social History household members: spouse Smoking Status: Never smoker alcohol intake: never Discharge Plan Discharge Plan Patient Disposition: Home Nursing Discharge Comment: f/u pcp Discharge orders & Medications Prescriptions: Continued ezetimibe 10 mg PO BEDTIME lisinopril 10 mg PO DAILY sertraline 100 mg PO DAILY amlodipine 2.5 mg PO DAILY simvastatin 40 mg PO DAILY Centrum PO DAILY Vitamin D3 10 mcg PO DAILY PreserVision AREDS PO BID isosorbide mononitrate 30 mg PO DAILY Follow up/Referrals: Shar Burns MD [Primary Care Provider] - Discharge Data Primary Care Provider: Shar Burns Attending Provider: Fabby Hernandez VTE Deep Vein Thrombosis/Pulmonary Embolism Present on Admission: No
== END 2022-01-30 19:24 | disposition home or self-care (01) ==
LOC: ED 03:03 → AC 05:14
PROVIDERS: Admitting Provider Nurse Practitioner Family; Emergency Provider Emergency Medicine; PCP Family Medicine; Visit Provider Nurse Practitioner Family
DX: K56.600 Partial intestinal obstruction, unspecified as to cause (principal); K59.00 Constipation, unspecified; I10 Essential (primary) hypertension; E78.5 Hyperlipidemia, unspecified; F32.A Depression, unspecified; F03.90 Unspecified dementia, unspecified severity, without behavioral disturbance, psychotic disturbance, mood disturbance, and anxiety; Z20.822 Contact with and (suspected) exposure to COVID-19
CPT/HCPCS: 36415; 71045; 74018; 74177; 76705; 80048; 80053; 80076; 82550; 82553; 83605; 83690; 83735; 84484; 85025; 87635; 93005; 94760; 96374; 96375; 96376; 99224; 99284; C9803; G0378; J1885; J2270; J2405; Q9967

== ENCOUNTER 2024-10-06 07:58 | Day surgery (SDC) | payer MEDICARE, SELFPAY ==
[2022-01-29 06:22] VITALS: BMI 26.5
[2024-09-24 07:54] VITALS: BMI 23.8
[2024-10-06 08:47] VITALS: BP 153/62; PULSE 62; RESP 16; TEMP 36.9; O2SAT 98; BMI 23.8
--- NOTE | 2024-10-06 09:04 | SUR.PREOP ---
Pt accompanied to OP sx by her son Avelino. Pt prepped for surgery per unit protocol. Pt sustained recent fall on 09/16 and EKG showed a fib. 3-lead rhythm strip obtained by this RN, which showed apparent SR with artifact. After discussion with MD and anesthesia, the decision was made to cancel pt's case until the pt can be evaluated and cleared for sx by cardiology.
== END 2024-10-06 23:00 | disposition home or self-care (01) ==
PROVIDERS: PCP Nurse Practitioner Family; Referring Provider Surgery; Visit Provider Surgery

== ENCOUNTER 2025-01-20 11:04 | Day surgery (SDC) | payer MEDICARE, SELFPAY ==
[2022-01-29 06:22] VITALS: BMI 26.5
[2025-01-15 10:40] VITALS: BMI 23.8
[2025-01-20] VITALS (9 sets, daily range): BP systolic 134–158; BP diastolic 48–68; PULSE 61–87; RESP 11–25; TEMP 36.3–36.9; O2SAT 93–100; BMI 23.8
[2025-01-20] MEDS: ACETAMINOPHEN IV 1,000 MG/100 ML VIAL 400 MG IV (12:00)
[2025-01-20] MEDS: LACTATED RINGERS 1,000 ML 42 ML IV (12:01)
--- NOTE | 2025-01-20 12:05 | PM.HP.IH.1 ---
History of Present Illness History of Present Illness Date Patient Seen: 01/20/25 Time Patient Seen: 12:05 Chief complaint: Right Hernia Repair - Inguinal Narrative: Leena is a 79 year old woman with dementia with a symptomatic right inguinal hernia. See office note for details. Here with son. [facility] Medical History (Updated 09/24/24 @ 12:12 by Meredith Miramontes RN) Paroxysmal A-fib GERD (gastroesophageal reflux disease) Duodenal ulcer (2010) Dementia Hyperlipidemia Essential hypertension Surgical History (Updated 01/29/22 @ 06:50 by BRENDA Cuadra) History of cervical spinal surgery History of lumbosacral spine surgery Social History household members: spouse and other Smoking Status: Never smoker alcohol intake: never Meds Home Medications and Allergies Home Medications ?Medication ?Instructions ?Recorded ?Confirmed ?Type Centrum PO DAILY 01/29/22 08/24/24 History PreserVision AREDS PO BID 01/29/22 08/24/24 History hydrocodone 5 mg-acetaminophen 325 tab PO 08/24/24 08/24/24 History mg tablet levothyroxine 50 mcg tablet 50 mcg PO DAILY 08/24/24 01/20/25 History omeprazole 40 mg capsule,delayed 40 mg PO DAILY 08/24/24 10/06/24 History release trazodone 100 mg tablet 100 mg PO ONCE PM 08/24/24 01/20/25 History amlodipine 5 mg tablet 2.5 mg PO DAILY 09/24/24 01/20/25 History cholecalciferol (vitamin D3) 25 25 mcg PO DAILY 09/24/24 09/24/24 History mcg (1,000 unit) capsule (Vitamin D3) ezetimibe 10 mg tablet 10 mg PO DAILY 09/24/24 01/20/25 History ferrous sulfate 325 mg (65 mg 325 mg PO DAILY 09/24/24 09/24/24 History iron) tablet isosorbide mononitrate 30 mg 30 mg PO DAILY 09/24/24 01/20/25 History tablet,extended release 24 hr lisinopril 10 mg tablet 10 mg PO DAILY 09/24/24 01/20/25 History metoprolol succinate 25 mg 25 mg PO DAILY 09/24/24 09/24/24 History tablet,extended release 24 hr sertraline 100 mg tablet 100 mg PO DAILY 09/24/24 09/24/24 History simvastatin 40 mg tablet 40 mg PO QPM 09/24/24 09/24/24 History Allergies Allergy/AdvReac Type Severity Reaction Status Date / Time No Known Drug Allergies Allergy Verified 01/20/25 11:29 Exam Vital Signs (past 8 hours): - 01/20/25 11:34 Temperature 98.4 F Pulse Rate 61 Respiratory Rate 12 Blood Pressure 155/63 H Pulse Oximetry 100 Oxygen Delivery Method Room Air Oxygen Delivery Method Room Air Narrative Exam Narrative: Tender reducible right inguinal hernia Assessment & Plan Assessment and plan (1) Right inguinal hernia: Status: Acute Plan Open right inguinal hernia repair with mesh Time-Based Coding :: [TOTAL MINUTES] spent with patient and on the chart (including review of chart, obtaining history, exam, reviewing outside data, placing orders, documenting exam and treatment plan, and counseling patient) on [DATE]. [employer] Document charge(s): No
[2025-01-20] MEDS: CEFAZOLIN 2 GM/100 ML PREMIX 100 ML IV (12:31)
--- NOTE | 2025-01-20 12:40 | SUR.OPER ---
Supine on padded OR bed, head on pillow, arms secured on padded arm boards at <90 degrees abduction, legs uncrossed, safety belt at thigh, tape over blanket over lower legs.
[2025-01-20] MEDS: BUPIVACAINE 0.5% W/ EPI (PF) 30 ML VIAL INJ (12:50)
--- NOTE | 2025-01-20 13:42 | P.OP_ITS ---
Operative Date/Time/Diagnoses Date of procedure: 01/20/25 Time of procedure: 13:42 Pre-op diagnosis: Right inguinal hernia Post-op diagnosis: same Procedure & Clinicians Procedure: Open right inguinal hernia repair with mesh Same procedure as scheduled: Yes Surgeon: dAriano Arteaga Librarian Helper: Rambo Apodaca Anesthesia Type: MAC +/- Operative Notes Findings: Indirect right inguinal hernia Applied: none Estimated Blood Loss (mL): 5 Procedure in detail: Preoperative antibiotic was administered. The patient was brought to the operating room and placed on the table in supine position monitored anesthesia was induced. The right groin was prepped and draped in the normal fashion and a time-out was performed. Roughly 10 mL of local anesthetic were injected into the skin and subcutaneous adipose tissue over the right groin. A 6 cm incision was made over the right inguinal canal. Dissection was carried down through the subcutaneous adipose tissue. We exposed the external oblique aponeurosis in the direction of the fibers. Additional local was injected deep to the aponeurosis. A 15 blade scalpel was used to koki the external oblique aponeurosis. Metzenbaum scissors were used to carefully open the aponeurosis in the direction of the fibers taking care not to injure the underlying ilioinguinal nerve which was well seen and protected. We completely exposed the inguinal canal. The hernia was dissected free from the inguinal ligament and floor of the inguinal canal and the external oblique aponeurosis was dissected off of the internal oblique taking care not to injure the hypogastric nerve. The ilioinguinal nerve was injected with local and divided sharply lateral to the field. The hernia was reduced into the abdomen. We then placed a polypropylene mesh against the floor of the inguinal canal. The mesh was secured with multiple interrupted 3-0 Prolene sutures to the pubic tubercle and shelving edge of the inguinal ligament as well as to the conjoint tendon medially. We overlapped the tails and closed the keyhole with multiple interrupted Prolene stitches.. We injected some more local into the soft tissues. Finally, we closed the external oblique fascia with a running 3-0 Vicryl suture. Skin was closed with interrupted 3-0 Vicryl dermal sutures and a running 4 Monocryl subcuticular stitch. EBL 5 mL The patient was awakened and brought to recovery room. Rambo BYRD provided assistance with exposure, retraction and closure of incisions. Complications: none Post-operative Condition: stable Disposition: PACU
[2025-01-20] MEDS: fentaNYL 100 MCG/2 ML INJ IV (13:57)
[2025-01-20] MEDS: HYDROMORPHONE 1 MG INJ IV ×2 (13:57→14:03)
[2025-01-20] MEDS: OXYCODONE IR 5 MG TABLET PO (13:57)
== END 2025-01-20 15:27 | disposition home or self-care (01) ==
PROVIDERS: PCP Nurse Practitioner Family; Referring Provider Surgery; Visit Provider Surgery
PROC: (CPT 49505; principal; 2025-01-20 13:15)
DX: K40.90 Unilateral inguinal hernia, without obstruction or gangrene, not specified as recurrent (principal); F03.90 Unspecified dementia, unspecified severity, without behavioral disturbance, psychotic disturbance, mood disturbance, and anxiety
CPT/HCPCS: 49505; C1781; J0131; J0330; J0690; J1100; J1171; J2405; J2704; J3010